=== PATIENT | male | born 1965 | race Two or more races ===

== ENCOUNTER 2025-01-14 12:10 | Emergency (ER) | payer MEDICARE, MEDICAID, SELFPAY ==
[2025-01-14 12:11] VITALS: BMI 27.3
[2025-01-14 12:48] VITALS: BP 159/90; PULSE 69; RESP 18; TEMP 36.7; O2SAT 100
--- NOTE | 2025-01-14 12:50 | EKG_ITS ---
[facility] Test Date: 2025-01-14 Pat Name: TATY BINGHAM Department: Room: - Gender: Male Echocardiography Technologist: : 1965 Requested By: Percy Galindo Order Number: [id number] Reading MD: Percy Galindo Measurements Intervals [place] Rate: 62 P: -20 AR: 156 QRS: -79 QRSD: 101 T: -24 QT: 380 QTc: 387 Interpretive Statements SINUS RHYTHM LEFT AXIS DEVIATION [QRS AXIS < -30] PATTERN CONSISTENT WITH PULMONARY DISEASE No previous ECG available for comparison /store/S0/[id number]
--- NOTE | 2025-01-14 12:50 | XR_ITS ---
Examination: CT brain head without contrast. 2-D sagittal coronal reconstructions Date and time of exam:January 14, 2025 1306 hours INDICATIONS: Dizziness lightheadedness onset today CTDI: vol (mGy):50.5 DLP: (mGycm):1005 Technique: Multiple CT axial sections of the brain have been obtained, 5 mm slice thickness. Contrast has not been administered. 2-D sagittal, coronal reconstructions have been obtained Low dose protocols were performed. One or more of the following dose reduction techniques were used; automated exposure control, adjustment of the mA and/or KV according to patient size, use of iterative reconstruction technique. Findings: No significant ventricular enlargement. Intra-axial or extra-axial hemorrhage density is not seen. No mass effect or midline shift Basal cisterns are not remarkable. Fourth ventricle is midline. Cranial vault intact. Old fracture medial wall right orbit Impression: Negative for acute hemorrhage, mass effect or midline shift Advise clinical correlation follow-up accordingly
--- NOTE | 2025-01-14 12:51 | PD.EDRME ---
Rapid Medical Screening Exam RME Arrival date/time: 01/14/25 12:10 59-year-old male with no known medical history presents to the emergency room with a chief complaint of blurry vision, dizziness, headache, weakness x 2 days I have greeted and performed a focused initial assessment of this patient. A comprehensive ED assessment and evaluation of the patient, analysis of all test results, and completion of the medical decision making process will be conducted by additional ED providers. Chief Complaint: Dizziness Vital signs reviewed by provider: Yes
[2025-01-14 14:06] LABS: Basophils % (Auto) 0 % (0-2.5); Eosinophils % (Auto) 1 % (0-10); Hemoglobin 16.3 g/dL (13.5-16.0); Immature Granulocytes % (Auto) 1 % (0-0); Immature Granulocytes Auto 0.03 Thou/mm3 (0.00-0.00); Lymphocytes # (Auto) 2.2 Thou/mm3 (1.0-4.8); Lymphocytes % (Auto) 34 % (10-50); Mean Corpuscular HGB Conc 35.4 g/dl (31.0-37.0); Mean Corpuscular Hemoglobin 31.3 pg (25.0-35.0); Mean Corpuscular Volume 88 fL (80-100); Monocytes # (Auto) 0.5 Thou/mm3 (0.0-0.8); Monocytes % (Auto) 7 % (0-12); Neutrophils # (Auto) 3.8 Thou/mm3 (1.8-7.7); Neutrophils % (Auto) 58 % (37-80); Nucleated Red Blood Cell % 0 /100 WBC (0); Platelet Count 162 Thou/mm3 (140-440); RDW Standard Deviation 40.3 fL (35.1-43.9); Red Blood Count 5.21 Miln/mm3 (4.50-5.90); White Blood Count 6.6 Thou/mm3 (3.8-10.6)
[2025-01-14 14:15] LABS: Collection Type, Urine Clean Catch; Squamous Epithelial Cell,Urine 0 /hpf (0-5)
--- NOTE | 2025-01-14 14:19 | EDNOTE_ITS ---
ED General RME/HPI General Chief complaint: Dizziness Stated complaint: SENT BY [facility], DIZZINESS, [place], BLURRY VISION X 2DAYS Time Seen by Provider: 01/14/25 14:07 Arrival date/time: 01/14/25 12:10 CC: Generalized weakness mild headache with occasional dizziness HPI ongoing for the past 2 days denies fever chills chest pain shortness of breath or difficulty breathing 1 episode of vomiting. No other complaints. Currently the patient states she has mild nausea but no dizziness at this time. No active vomiting. RME / HPI RME / HPI narrative: 01/14/25 12:10 59-year-old male with no known medical history presents to the emergency room with a chief complaint of blurry vision, dizziness, headache, weakness x 2 days I have greeted and performed a focused initial assessment of this patient. A comprehensive ED assessment and evaluation of the patient, analysis of all test results, and completion of the medical decision making process will be conducted by additional ED providers. Related Data Previous Rx's ?Medication ?Instructions ?Recorded acetaminophen 300 mg-codeine 30 mg 1 tab PO BID #6 tab s 06/19/23 tablet metoclopramide HCl 10 mg tablet 10 mg PO Q6H PRN nause a and 06/19/23 (Reglan) vomiting #20 tabs ondansetron 4 mg disintegrating 4 mg PO Q8H #10 tabs 0 01/14/25 tablet Allergies Allergy/AdvReac Type Severity Reaction Status Date / Time No Known Allergies Allergy Verified 01/14/25 12:15 Review of Systems Review of Systems Narrative Review of Systems: GEN: No fever, no chills, no weight loss EYES: No discharge, no visual changes, no pain HEENT: No ear pain, no congestion, no sore throat PULM: No shortness of breath, no cough, no congestion CV: No chest pain, no dyspnea on exertion, no palpitations GI: + nausea, no vomiting, no diarrhea, no pain, no constipation : No frequency, no urgency, no dysuria MUSC/SKEL: No joint pain, no back pain SKIN: No rash PSYCH: No hallucinations, no depression HEME/LYMPH: No easy bleeding or bruising tendencies NEURO: No weakness, no headache,+ Past Medical History Past Medical History CARDIAC: Positive Cardiac Disorders, Hypertension and Hypotension; Negative Congestive Heart Failure RESPIRATORY: Negative Chronic Obstructive Pulmonary Disease (COPD) GENITOURINARY: Negative Renal Disease ENDOCRINE: Positive Endocrine Disorders and Diabetes Mellitus Type 1; Negative Diabetes Mellitus Type 2 Social History SMOKING STATUS: Never smoker ED Exam Narrative Physical exam: [General: Obese not in any acute distress Head normocephalic HEENT: Within acceptable limits Neck is supple nontender Chest equal chest rise nontender to palpation Respiratory: Clear to auscultation no wheezes crackles or rubs CV: Rate rhythm is regular no murmurs rubs or clicks Abdomen is soft nontender no masses positive bowel sounds all 4 quadrants Back: No CVA tenderness no spinous process tenderness from cervical spine thoracic and lumbar spine Skin: Intact no petechiae rash induration ulceration or crepitus Extremities: Moving all extremity against resistance cap refill less than 2 seconds neurosensory intact Neuro: Awake alert oriented x3 Glascow coma 15 no focal deficits] Course Quality Measures none Orders Category Date Time Status Bedside COVID-19 Antigen Test NOW Care 01/14/25 12:51 Active Bedside Influenza A&B Antigen Test NOW Care 01/14/25 12:51 Completed EKG (ED ONLY) *Do not use* NOW Care 01/14/25 12:[address] head/brain wo con Stat Exams 01/14/25 12:50 Completed EKG (ED Only) Stat Exams 01/14/25 12:50 Draft CBC Stat Lab 01/14/25 13:49 Completed Comprehensive Metabolic Panel Stat Lab 01/14/25 13:49 Completed Troponin I Stat Lab 01/14/25 13:49 Completed Urinalysis Stat Lab 01/14/25 14:00 Completed Urine Culture Stat Lab 01/14/25 14:00 Received Ketorolac Inj [Toradol Inj] Med 01/14/25 14:12 Discontinued 15 mg IVP X1 ONE Sodium Chloride 0.9% 1000 ml [Ns] 1,000 ml Med 01/14/25 14:12 Discontinued IV 999 mls/hr Vital Signs Vital signs: Vital Signs Temperature 98.0 F 01/14/25 12:48 Pulse Rate 69 01/14/25 12:48 Respiratory Rate 18 01/14/25 12:48 Blood Pressure 159/90 H 01/14/25 12:48 Pulse Oximetry (%) 100 01/14/25 12:48 Oxygen Delivery Method Room Air 01/14/25 12:48 [facility] Patient data External records reviewed:: [facility] previous records Clinical information provided by:: patient Social determinants that could affect healthcare access:: none Patient has the following chronic illnesses:: None How is presenting disease/condition affected by chronic disease/condition?: u neffected by Evaluation data The following diagnostics were reviewed and interpreted by me:: lab results, radiology exam(s) and EKG tracing(s) Lab and/or radiology exams considered but not ordered:: EKG performed at 1313 shows a ventricular rate of 62. #156 QRS of 101 QTc of 385 sinus rhythm left axis deviation. This is an abnormal EKG. CBC shows no acute leukocytosis anemia thrombocytopenia CT head is negative for any acute finding requires emergent or immediate intervention. CMP shows no acute electrolyte imbalances renal impairment transaminitis or T. bili elevation Urine is negative for plus glucose no bacteria no epithelial cells. Interpretation Summary: After liter of fluid and Toradol the patient is feeling much better there is no nausea weakness patient was sat up in the bed, states he has no dizziness no headache no nausea. At this time comfortable discharging the patient home Medications Medications considered but not ordered:: None Medication administrations:: Medication Administration History Discontinued Medications Sodium Chloride (Ns) 1,000 mls @ 999 mls/hr IV .Q1H1M ONE Stop: 01/14/25 15:12 Last Admin: 01/14/25 14:21 Dose: 999 mls/hr Documented By: YADI Ketorolac Tromethamine (Ketorolac Inj 30 Mg/Ml Vial) 15 mg IVP X1 ONE Stop: 01/14/25 14:13 Last Admin: 01/14/25 14:21 Dose: 15 mg Documented By: YADI None Consultations Consultation(s) initiated? (list below): No Diagnosis Differential Diagnosis ED Complaint MDM: Vertigo dehydration closed head injury Most likely diagnosis given after review of the tests above:: Nausea headache weakness Admission Indicated Admission indicated?: not indicated Explain why admission is indicated or not indicated:: Stable for discharge Admission Request Was there a request for admission?: No Disposition Plan Disposition Plan: Discharge Discharge Attestation Discharge Attestation: The patient and all family members were given an opportunity to ask questions and understood the discharge instructions. Discharge instructions specifically effects, indications for sooner follow up or return to the emergency department, and the expected course of current diagnosis. Patient condition: Stable Medical Decision Making Differential Diagnosis Differential Diagnosis: Vertigo dehydration closed head injury Lab Data 01/14/25 13:49 01/14/25 13:49 Labs: Lab Results 01/14/25 01/14/25 Range/Units 13:49 14:00 WBC 6.6 (3.8-10.6) Thou/mm3 RBC 5.21 (4.50-5.90) Miln/mm3 Hgb 16.3 H (13.5-16.0) g/dL Hct 46.0 (41.0-53.0) % MCV 88 (80-100) fL MCH 31.3 (25.0-35.0) pg MCHC 35.4 (31.0-37.0) g/dl RDW Std Deviation 40.3 (35.1-43.9) fL Plt Count 162 (140-440) Thou/mm3 Neut % (Auto) 58 (37-80) % Lymph % (Auto) 34 (10-50) % [place] % (Auto) 7 (0-12) % Eos % (Auto) 1 (0-10) % Baso % (Auto) 0 (0-2.5) % Neut # (Auto) 3.8 (1.8-7.7) Thou/mm3 Lymph # (Auto) 2.2 (1.0-4.8) Thou/mm3 [place] # (Auto) 0.5 (0.0-0.8) Thou/mm3 Eos # (Auto) 0.0 (0.0-0.5) Thou/mm3 Baso # (Auto) 0.0 (0.0-0.2) Thou/mm3 Immature Gran # (Auto) 0.03 H (0.00-0.00) Thou/mm3 Absolute Nucleated RBC 0.00 (0.00-0.00) Thou/mm3 Immature Gran % 1 H (0-0) % Nucleated RBC % 0 (0) /100 WBC Sodium 139 (136-145) mMol/L Potassium 4.2 (3.4-5.1) mMol/L Chloride 105 (98-107) mMol/L Carbon Dioxide 24.5 (20.0-31.0) mMol/L Anion Gap 10 (7-16) BUN 17 (9-23) mg/dL Creatinine 1.1 (0.6-1.3) mg/dL Estim Creat Clear Calc 73.2 (>60) mL/min eGFR > 60 (60 - ) See Note BUN/Creatinine Ratio 15 (12-20) Ratio Glucose 134 H (74-106) mg/dL Calculated Osmolality 281 (275-295) Calcium 9.7 (8.3-10.6) mg/dL Corrected Calcium 9.7 (8.5-10.1) mg/dL Total Bilirubin 1.1 (0.3-1.2) mg/dL AST 26 (0-34) U/L ALT 48 (10-49) U/L Alkaline Phosphatase 46 (46-116) U/L Troponin I < 0.020 (0.0-0.045) ng/mL Total Protein 7.7 (5.7-8.2) gm/dL Albumin 4.7 (3.5-5.0) gm/dL Globulin 3.0 (2.3-3.5) gm/dL Albumin/Globulin Ratio 1.6 (1.2-2.2) Ur Collection Type Clean Catch Urine Color Yellow (Lt Yel-Yel) Urine Clarity Clear (Clear/Hazy) Urine pH 6.0 (5.0-7.0) Ur Specific [place] 1.047 H (1.001-1.035) Urine Protein 1+ A (Neg - Trace) Urine Glucose (UA) 4+ A (Negative) Urine Ketones 2+ A (Negative) Urine Blood Negative (Negative) Urine Nitrite Negative (Negative) Urine Bilirubin Negative (Negative) Urine Urobilinogen (Auto) Negative (0.0-1.0) mg/dL Ur Leukocyte Esterase Negative (Negative) Urine RBC 3 (0-3) /hpf Urine WBC 1 (0-5) /hpf Ur Squamous Epith Cells 0 (0-5) /hpf Urine Bacteria None (None) Discharge Plan Plan Patient Disposition: HOME (Self Care) Patient condition on transfer: Stable Prescriptions/Referrals Prescriptions/Med Rec: New ondansetron 4 mg tablet,disintegrating 4 mg PO Q8H Qty: 10 0RF No Action metoclopramide HCl [Reglan] 10 mg tablet 10 mg PO Q6H PRN (Reason: nausea and vomiting) Qty: 20 0RF acetaminophen-codeine 300-30 mg tablet 1 tab PO BID Qty: 6 0RF Referrals: Trey Blas MD [Physician] - In 1 week No Primary/Family,Physician [Primary Care Provider] - In 1 week Problem List Clinical Impression: Nausea, Headache, Vertigo Patient/Caregiver Discharge Instructions Education Materials: Self-Care for Headaches, Dizziness Fainting Poss Causes Additional Instructions: Take the medication as needed for dizziness if there is worsening of symptoms return the emergency room immediately for further evaluation. Print Language: Maori Stand Alone Forms: Pretty Award Info., Patient Portal Info Letter, Work/School Release PA/NUCLEAR REACTOR TECHNICIAN Supervising Physician PA/NUCLEAR REACTOR TECHNICIAN Supervising Physician: Angel Garcia ENP
[2025-01-14] MEDS: KETOROLAC INJ 30 MG/ML VIAL 15 MG IVP (14:21)
[2025-01-14] MEDS: SODIUM CHLORIDE 0.9% 1000 ML 1,000 ML 999 ML IV (14:21)
[2025-01-14 14:26] LABS: Alanine Aminotransferase 48 U/L (10-49); Albumin, Serum 4.7 gm/dL (3.5-5.0); Albumin/Globulin Ratio 1.6 (1.2-2.2); Alkaline Phosphatase 46 U/L (46-116); Anion Gap 10 (7-16); Aspartate Amino Transferase 26 U/L (0-34); BUN/Creatinine Ratio 15 Ratio (12-20); Bilirubin,Total 1.1 mg/dL (0.3-1.2); Blood Urea Nitrogen 17 mg/dL (9-23); Calcium 9.7 mg/dL (8.3-10.6); Calcium (Corrected) 9.7 mg/dL (8.5-10.1); Carbon Dioxide 24.5 mMol/L (20.0-31.0); Chloride 105 mMol/L (98-107); Creatinine (Component) 1.1 mg/dL (0.6-1.3); Estimated Creatinine Clearance 73.2 mL/min (>60); Glucose 134 mg/dL (74-106); Osmolality,Calculated 281 (275-295); Potassium 4.2 mMol/L (3.4-5.1); Sodium 139 mMol/L (136-145); Total Protein 7.7 gm/dL (5.7-8.2); Troponin I < 0.020 ng/mL (0.0-0.045); eGFR > 60 See Note
[2025-01-14 14:47] LABS: Bilirubin,Urine Negative (Negative); Blood,Urine Negative (Negative); Clarity,Urine Clear (Clear/Hazy); Color,Urine Yellow (Lt Yel-Yel); Glucose, Urine 4+ (Negative); Ketones,Urine 2+ (Negative); Leukocyte Esterase,Urine Negative (Negative); Nitrite,Urine Negative (Negative); Protein,Urine 1+ (Neg - Trace); RBC,Urine 3 /hpf (0-3); Specific Gravity,Urine 1.047 (1.001-1.035); Urobilinogen,Urine Negative mg/dL (0.0-1.0); WBC,Urine 1 /hpf (0-5)
== END 2025-01-14 16:19 | disposition home or self-care (01) ==
PROVIDERS: Nurse Practitioner Family; Emergency Provider Emergency Medicine
DX: R11.2 Nausea with vomiting, unspecified (principal); R51.9 Headache, unspecified; R42 Dizziness and giddiness
CPT/HCPCS: 36415; 70450; 80053; 81001; 84484; 85025; 87086; 87400; 87811; 93005; 96360; 99284; J1885; J7030

== ENCOUNTER 2025-01-16 12:48 | Emergency (ER) | payer MEDICARE, MEDICAID, SELFPAY ==
[2025-01-16 12:49] VITALS: BMI 26.6
[2025-01-16 13:33] VITALS: BP 157/96; PULSE 88; RESP 18; TEMP 36.9; O2SAT 99
--- NOTE | 2025-01-16 13:44 | XR_ITS ---
Examination: PA chest single view TECHNIQUE: Upright PA chest single view Exam date and time: January 16, 2025 1400 hours INDICATIONS: Chest pain dizziness headaches high blood pressure beginning 4 days ago. FINDINGS: Mild rounding left ventricle Lungs are clear. The osseous structures are intact IMPRESSION: No active disease
--- NOTE | 2025-01-16 13:44 | EKG_ITS ---
[facility] Test Date: 2025-01-16 Pat Name: TATY BINGHAM Department: Room: - Gender: Male Manager Of Training And Development: : 1965 Requested By: Patricia Lee ([facility]) Susy Order Number: [id number] Reading MD: Patricia Lee ([facility]) Susy Measurements Intervals [place] Rate: 69 P: -19 TX: 148 QRS: -70 QRSD: 106 T: -19 QT: 370 QTc: 398 Interpretive Statements SINUS RHYTHM LEFT AXIS DEVIATION [QRS AXIS < -30] Compared to ECG 01/14/2025 13:13:05 No significant changes /store/S0/[id number].pdf
--- NOTE | 2025-01-16 13:48 | PD.EDRME ---
Rapid Medical Screening Exam RME Arrival date/time: 01/16/25 12:48 59-year-old male presents to the emergency department with complaints of generalized headache, generalized fatigue for 2 days. History of diabetes.+ Nausea vomiting. I have greeted and performed a focused initial assessment of this patient. Initial appropriate labs ordered at this time. A comprehensive ED assessment and evaluation of the patient and analysis of all test and completion of medical decision making process will be conducted by additional ED provider. Chief Complaint: Headache Time Seen by Provider: 01/16/25 13:12 Vital signs: Vital Signs Temperature 98.5 F 01/16/25 13:33 Pulse Rate 88 01/16/25 13:33 Respiratory Rate 18 01/16/25 13:33 Blood Pressure 157/96 H 01/16/25 13:33 Pulse Oximetry (%) 99 01/16/25 13:33 Oxygen Delivery Method Room Air 01/16/25 13:33
[2025-01-16 14:24] LABS: Glucose Estimated Average 206 mg/dL (80-131); Hemoglobin A1C 8.8 % Hgb (4.8-6.0)
[2025-01-16 14:25] LABS: Basophils % (Auto) 0 % (0-2.5); Eosinophils % (Auto) 1 % (0-10); Hematocrit 44.7 % (41.0-53.0); Hemoglobin 16.2 g/dL (13.5-16.0); Immature Granulocytes % (Auto) 0 % (0-0); Immature Granulocytes Auto 0.02 Thou/mm3 (0.00-0.00); Lymphocytes # (Auto) 1.9 Thou/mm3 (1.0-4.8); Lymphocytes % (Auto) 31 % (10-50); Mean Corpuscular HGB Conc 36.2 g/dl (31.0-37.0); Mean Corpuscular Hemoglobin 31.3 pg (25.0-35.0); Mean Corpuscular Volume 86 fL (80-100); Monocytes # (Auto) 0.4 Thou/mm3 (0.0-0.8); Monocytes % (Auto) 6 % (0-12); Neutrophils # (Auto) 3.9 Thou/mm3 (1.8-7.7); Neutrophils % (Auto) 62 % (37-80); Nucleated Red Blood Cell % 0 /100 WBC (0); Platelet Count 164 Thou/mm3 (140-440); RDW Standard Deviation 38.6 fL (35.1-43.9); Red Blood Count 5.18 Miln/mm3 (4.50-5.90); White Blood Count 6.2 Thou/mm3 (3.8-10.6)
[2025-01-16 14:26] LABS: B-Type Natriuretic Peptide 23 pg/mL (0-100)
[2025-01-16 14:29] LABS: Alanine Aminotransferase 62 U/L (10-49); Albumin, Serum 4.5 gm/dL (3.5-5.0); Albumin/Globulin Ratio 1.6 (1.2-2.2); Alkaline Phosphatase 44 U/L (46-116); Anion Gap 11 (7-16); Aspartate Amino Transferase 40 U/L (0-34); BUN/Creatinine Ratio 13 Ratio (12-20); Bilirubin,Total 1.1 mg/dL (0.3-1.2); Blood Urea Nitrogen 13 mg/dL (9-23); Calcium 9.6 mg/dL (8.3-10.6); Calcium (Corrected) 9.6 mg/dL (8.5-10.1); Carbon Dioxide 22.3 mMol/L (20.0-31.0); Chloride 102 mMol/L (98-107); Estimated Creatinine Clearance 80.5 mL/min (>60); Globulin 2.8 gm/dL (2.3-3.5); Glucose 147 mg/dL (74-106); Lipase 48 U/L (12-53); Magnesium 1.9 mg/dL (1.6-2.6); Osmolality,Calculated 273 (275-295); Potassium 3.9 mMol/L (3.4-5.1); Sodium 135 mMol/L (136-145); Total Protein 7.3 gm/dL (5.7-8.2); Troponin I < 0.020 ng/mL (0.0-0.045); eGFR > 60 See Note
[2025-01-16 14:33] LABS: Partial Thromboplastin Time 25.4 Seconds (22.0-36.0); Prothrombin Time 10.9 Seconds (9.0-12.2)
--- NOTE | 2025-01-16 18:08 | PC.NURSE ---
pt was upset for long wait time. pt stated he was leaving to [facility] and left
== END 2025-01-16 19:18 | disposition left against medical advice (07) ==
PROVIDERS: Nurse Practitioner Primary Care; Emergency Provider Family Medicine
DX: R51.9 Headache, unspecified (principal); Z53.29 Procedure and treatment not carried out because of patient's decision for other reasons; E11.9 Type 2 diabetes mellitus without complications; R53.83 Other fatigue
CPT/HCPCS: 36415; 71045; 80053; 83036; 83690; 83735; 83880; 84484; 85025; 85610; 85730; 93005; 99281

== ENCOUNTER → 2025-03-14 | Outpatient (CLI) | payer MEDICARE, MEDICAID, SELFPAY | END | disposition home or self-care (01) | LOC: SMRI 11:50 | PROVIDERS: PCP Family Medicine; Referring Provider Family Medicine; Visit Provider Family Medicine | DX: Z53.8 Procedure and treatment not carried out for other reasons (principal) ==